=== PATIENT | male | born 1995 ===

== ENCOUNTER 2017-08-13 17:09 | Emergency (ER) | payer BC ==
--- NOTE | 2017-08-13 18:29 | UC ---
Ear Complaint HPI - HPI Summary HPI Summary: RIGHT EAR PAIN X 1 DAY + PLUGGED RIGHT EAR , PT USED QTIP , TO REMOVE EAR WAX NO COLD SX, NO EAR DISCHARGE OR BLEEDING - History of Current Complaint Chief Complaint: UCEar Stated Complaint: RIGHT EAR PAIN Time Seen by Provider: 08/13/17 18:15 Hx Obtained From: Patient Onset/Duration: Sudden Onset, Lasting Days - 1, Still Present Severity Initially: Moderate Severity Currently: Moderate Aggravating Factors: Nothing Alleviating Factors: Nothing Associated Signs/Symptoms: Positive: Hearing Loss. Negative: Discharge, Foreign Body Sensation, Trauma to Ear, Swelling @, URI Symptoms - Allergies/Home Medications Allergies/Adverse Reactions: Allergies Allergy/AdvReac Type Severity Reaction Status Date / Time No Known Allergies Allergy Verified 08/13/17 17:40 Home Medications: Home Medications Amphetamine-Dextroamphetamine [Adderall 10 mg-] 2 tab PO BID 08/13/17 [History Confirmed 08/13/17] PMH/Surg Hx/FS Hx/Imm Hx Previously Healthy: Yes - Surgical History Surgical History: None - Family History Known Family History: Negative: Diabetes - Social History Alcohol Use: Weekly Substance Use Type: None Smoking Status (MU): Never Smoked Tobacco - Immunization History Most Recent Influenza Vaccination: no Review of Systems Constitutional: Negative Skin: Negative Eyes: Negative ENT: Ear Ache Respiratory: Negative Cardiovascular: Negative Gastrointestinal: Negative Is Patient Immunocompromised?: No All Other Systems Reviewed And Are Negative: Yes Physical Exam Triage Information Reviewed: Yes Appearance: Well-Appearing, No Pain Distress, Well-Nourished Vital Signs: Initial Vital Signs Temp 98.2 F 08/13/17 17:36 Pulse 70 08/13/17 17:36 Resp 14 08/13/17 17:36 BP 125/68 08/13/17 17:36 Pulse Ox 99 08/13/17 17:36 Vital Signs Reviewed: Yes Eyes: Positive: Conjunctiva Clear ENT: Positive: Normal ENT inspection, Hearing grossly normal, Pharynx normal, TMs normal, Other: - CERUMEN IMPACTION OF THE RIGHT EAR WAS REMOVED BY IRRIGATION WITH WARM WATER. Negative: TM bulging, TM dull, TM red Neck exam: Normal Neck: Positive: Supple, Nontender, No Lymphadenopathy Respiratory: Positive: Chest non-tender, Lungs clear, Normal breath sounds Cardiovascular: Positive: RRR, No Murmur, Pulses Normal Skin Exam: Normal Ear Complaint Course/Dx - Differential Dx/Diagnosis Provider Diagnoses: CERUMEN IMPACTION RIGHT EAR Discharge - Discharge Plan Condition: Stable Disposition: HOME Patient Education Materials: Cerumen Impaction (ED) Referrals: No Primary Care Phys,NOPCP [Primary Care Provider] - If Needed
== END 2017-08-13 18:38 | disposition home or self-care (01) ==
LOC: UCCORT 17:09
DX: H61.21 Impacted cerumen, right ear (principal)
CPT/HCPCS: 99201; G0463